=== PATIENT | male | born 1975 | race Hispanic/Latino ===

== ENCOUNTER 2020-02-26 21:40 | Inpatient (IN) | payer OTHER ==
[~2020-02-26] VITALS: Ht 162.6 cm; Wt 82.2 kg
[2020-02-26] MEDS ORDERED: LIDOCAINE HCL 2% VISCOUS 15 ML UDCUP ONE (23:51)
[2020-02-26] MEDS ORDERED: MAG HYDROX/AL HYDROX/SIMETH ES 30 ML SUSP UDCUP ONE (23:52)
[2020-02-26] MEDS ORDERED: ONDANSETRON HCL 4 MG/2 ML VIAL ONE (23:52)
[2020-02-26] MEDS ORDERED: ACETAMINOPHEN EXTRA STRENGTH 500 MG TABLET ONE (23:52)
[2020-02-27 00:10] LABS: BASOPHILS % (AUTO) 0.2 % (0.0-5.0); HEMATOCRIT 44.3 % (42-54); LYMPHOCYTES % (AUTO) 13.9 % (21.0-51.0); MEAN CORPUSCULAR HEMOGLOBIN 29.7 pg (27.0-33.0); MEAN CORPUSCULAR HGB CONC 34.3 g/dL (32.0-36.0); MEAN CORPUSCULAR VOLUME 86.7 fL (79-99); MONOCYTES % (AUTO) 9.9 % (3.0-13.0); NEUTROPHILS % (AUTO) 75.8 % (40.0-77.0); PLATELET COUNT (AUTO) 161 K/uL (130-400); RED BLOOD CELL COUNT(AUTO) 5.11 MIL/uL (4.50-6.20); RED CELL DISTRIBUTION WIDTH 12.4 % (11.0-15.5)
[2020-02-27 00:21] LABS: CREATININE 1.1 mg/dL (0.5-1.5); POTASSIUM 3.6 mmol/L (3.5-5.1)
[2020-02-27 00:25] LABS: INR 0.94 (0.85-1.15); PARTIAL THROMBOPLASTIN TIME 32.4 SEC (26.3-35.5); PROTHROMBIN TIME 10.2 SEC (9.6-11.6)
[2020-02-27 00:28] LABS: RAPID GROUP A STREP NEGATIVE (NEGATIVE)
[2020-02-27 00:29] LABS: BILIRUBIN,TOTAL 0.4 mg/dL (0.2-1.0); TOTAL PROTEIN, SERUM 6.9 g/dL (6.0-8.3)
[2020-02-27 00:30] LABS: CREATINE KINASE, TOTAL 83 U/L (21-232); MYOGLOBIN 35 ng/mL (10-92); TROPONIN I < 0.04 ng/mL (0.00-0.06)
[2020-02-27] MEDS ORDERED: IOHEXOL 350 MG/ML 100ML INFUS..BTL IV ONE (01:11)
[2020-02-27] MEDS ORDERED: IOHEXOL-350 50ML VIAL IV ONE (01:11)
[2020-02-27 01:35] LABS: APPEARANCE,URINE Clear (CLEAR); BILIRUBIN,URINE Small (NEGATIVE); COLOR,URINE Dark Yellow (YELLOW); GLUCOSE, URINE (UA) Negative (NEGATIVE); KETONES,URINE >=160 mg/dL (NEGATIVE); LEUKOCYTE ESTERASE ,URINE Negative (NEGATIVE); NITRATE,URINE Negative (NEGATIVE); OCCULT BLOOD,URINE Negative (NEGATIVE); PROTEIN,URINE POS 1+ mg/dL (NEGATIVE)
[2020-02-27 01:53] LABS: BACTERIA,URINE Few /HPF (None Seen); MUCUS,URINE Few LPF (None Seen); SQUAMOUS EPITHELIAL CELL,UR 0-2 /HPF (0-2)
[2020-02-27 02:27] LABS: ABG BASE EXCESS -2.4 mmol/L (-2.0-3.0); ABG HCO3 21.3 mmol/L (21.0-28.0); ABG OXYGEN SATURATION 91.7 % (95.0-99.0); ABG PCO2 34 mmHg (35-48)
[2020-02-27] MEDS: SODIUM CHLORIDE 0.9% 1000ML 1,000 ML IV SCH ×2 (03:04→13:04)
[2020-02-27] MEDS: AZITHROMYCIN 500MG+NS 250ML 250 ML IV SCH (03:15)
[2020-02-27] MEDS ORDERED: SODIUM CHLORIDE 0.9% 1000ML 1,000 ML IV SCH (03:15)
[2020-02-27] MEDS ORDERED: DIPHENHYDRAMINE HCL 25 MG CAPSULE PO PRN (03:15)
[2020-02-27] MEDS ORDERED: NITROGLYCERIN 0.4 MG SL TAB SL PRN (03:15)
[2020-02-27] MEDS: CEFTRIAXONE SODIUM 1 GM IVP SCH (03:15)
[2020-02-27] MEDS ORDERED: ACETAMINOPHEN 325 MG TAB PO PRN (03:15)
[2020-02-27] MEDS ORDERED: ONDANSETRON HCL 4 MG/2 ML VIAL IV PRN (03:15)
[2020-02-27] MEDS ORDERED: CEFTRIAXONE SODIUM 1 GM ONE (03:28)
[2020-02-27] MEDS ORDERED: METHYLPREDNISOLONE SOD SUCC 125MG/2ML VIAL ONE (03:28)
[2020-02-27] MEDS: METHYLPREDNISOLONE SOD SUCC 40MG/ML 1ML IVP SCH ×2 (04:00→12:00)
[2020-02-27] MEDS ORDERED: ALBUTEROL INHALER 90MCG/INH IH PRN (04:30)
[2020-02-27 07:15] LABS: HEMATOCRIT 40.7 % (42-54); MEAN CORPUSCULAR HGB CONC 34.4 g/dL (32.0-36.0); MEAN CORPUSCULAR VOLUME 87.2 fL (79-99); PLATELET COUNT (AUTO) 161 K/uL (130-400); RED BLOOD CELL COUNT(AUTO) 4.67 MIL/uL (4.50-6.20); RED CELL DISTRIBUTION WIDTH 12.7 % (11.0-15.5); WHITE BLOOD COUNT (AUTO) 4.1 K/uL (4.8-10.8)
[2020-02-27 07:50] LABS: ALANINE AMINOTRANSFERASE 61 U/L (12-78); ALBUMIN 2.5 g/dL (3.5-5.0); ASPARTATE AMINOTRANSFERASE 53 U/L (10-37); BILIRUBIN,TOTAL 0.3 mg/dL (0.2-1.0); CARBON DIOXIDE 24 mmol/L (21-32); CHLORIDE 109 mmol/L (101-111); CREATINE KINASE, TOTAL 88 U/L (21-232); CREATININE 0.8 mg/dL (0.5-1.5); GLOMERULAR FILTR. RATE CALC 111 mL/min (>60); GLUCOSE,RANDOM 122 mg/dL (70-105); LACTATE DEHYDROGENASE 393 U/L (81-234); MYOGLOBIN 34 ng/mL (10-92); POTASSIUM 4.1 mmol/L (3.5-5.1); SODIUM SERUM 139 mmol/L (136-145); TOTAL PROTEIN, SERUM 5.8 g/dL (6.0-8.3); TRIGLYCERIDES 60 mg/dL (30-200); TROPONIN I < 0.04 ng/mL (0.00-0.06); UREA NITROGEN, BLOOD 9 mg/dL (7-18)
[2020-02-27 08:23] LABS: BAND NEUTROPHILS % (MANUAL) 3 % (0-2); LYMPHOCYTES % (MANUAL) 8 % (22-44); MONOCYTES % (MANUAL) 7 % (2-9); PLATELET MORPHOLOGY COMMENT ADEQUATE; REACTIVE LYMPHOCYTES 4 % (0-0); SEGMENTED NEUTROPHILS % 78 % (40-70)
[2020-02-27] MEDS ORDERED: ENOXAPARIN SODIUM 30 MG/0.3 ML SQ SCH (09:00)
[2020-02-27] MEDS: FAMOTIDINE 20MG TAB 20 MG TAB PO SCH (09:00)
[2020-02-27] MEDS ORDERED: METHYLPREDNISOLONE SOD SUCC 40MG/ML 1ML ONE ×2 (09:24→18:00)
[2020-02-27] MEDS ORDERED: ENOXAPARIN SODIUM 30 MG/0.3 ML SQ ONE (10:39)
[2020-02-27] MEDS ORDERED: FAMOTIDINE/PF 20 MG/2 ML VIAL IV ONE ×2 (11:23→22:19)
--- NOTE | 2020-02-27 14:29 | NUR ---
INITIAL SW spoke with patient's spouse, Essence Rowland, [phone]. No home services or DME. Patient is independent and arabella. He has no PCP as per . Pharmacy is [facility] located on [address] [facility] in [place]. DCP is home. Patient has no insurance or benefits. He is not a [place] citizen or legal resident as per . Patient's spouse educated on [facility] $4 medication program and [facility] $5 medication program. Patient is being assisted by [employer] for financial matters. Addendum: 02/27/20 at 1436 by JEVON MAHARAJ Amended: Links added.
[2020-02-27] MEDS ORDERED: BENZONATATE 100 MG CAPSULE PO ONE (20:52)
[2020-02-27] MEDS ORDERED: SODIUM CHLORIDE 0.9% 1000ML 1,000 ML IV ONE (22:22)
[2020-02-27] MEDS ORDERED: BENZONATATE 100 MG CAPSULE PO PRN (23:15)
[2020-02-28] MEDS ORDERED: DiphenhydrAMINE HCL 25 MG/10 ML ELIXIR UDCUP ONE (02:01)
[2020-02-28] MEDS ORDERED: ACETAMINOPHEN ELIXIR 650 MG/20.3 ML UDCUP ONE (02:01)
[2020-02-28] MEDS ORDERED: METHYLPREDNISOLONE SOD SUCC 40MG/ML 1ML ONE ×3 (02:10→17:04)
[2020-02-28] MEDS: CEFTRIAXONE SODIUM 1 GM IVP SCH (03:15)
[2020-02-28] MEDS: AZITHROMYCIN 500MG+NS 250ML 250 ML IV SCH (03:15)
[2020-02-28] MEDS ORDERED: AZITHROMYCIN 500MG+NS 250ML 250 ML IV ONE (05:02)
[2020-02-28] MEDS ORDERED: CEFTRIAXONE SODIUM 1 GM ONE (05:03)
[2020-02-28 05:41] LABS: MEAN CORPUSCULAR HEMOGLOBIN 29.9 pg (27.0-33.0); MEAN CORPUSCULAR HGB CONC 34.3 g/dL (32.0-36.0); PLATELET COUNT (AUTO) 210 K/uL (130-400); RED BLOOD CELL COUNT(AUTO) 5.29 MIL/uL (4.50-6.20); RED CELL DISTRIBUTION WIDTH 12.8 % (11.0-15.5); WHITE BLOOD COUNT (AUTO) 13.9 K/uL (4.8-10.8)
[2020-02-28 06:00] LABS: ABG BASE EXCESS -3.6 mmol/L (-2.0-3.0); ABG HCO3 20.4 mmol/L (21.0-28.0); ABG OXYGEN SATURATION 91.1 % (95.0-99.0); ABG PCO2 34 mmHg (35-48)
[2020-02-28 06:02] LABS: ALBUMIN 2.8 g/dL (3.5-5.0); BILIRUBIN,TOTAL 0.3 mg/dL (0.2-1.0); POTASSIUM 3.6 mmol/L (3.5-5.1); TOTAL PROTEIN, SERUM 6.6 g/dL (6.0-8.3)
[2020-02-28 06:34] LABS: BAND NEUTROPHILS % (MANUAL) 19 % (0-2); LYMPHOCYTES % (MANUAL) 10 % (22-44); MAN.DIFF COMMENT-IMPRESSION MANUAL DIFFERENTIAL; MONOCYTES % (MANUAL) 7 % (2-9); PLATELET MORPHOLOGY COMMENT ADEQUATE; SEGMENTED NEUTROPHILS % 64 % (40-70)
[2020-02-28] MEDS ORDERED: ENOXAPARIN SODIUM 30 MG/0.3 ML SQ ONE (09:23)
[2020-02-28] MEDS ORDERED: FAMOTIDINE/PF 20 MG/2 ML VIAL IV ONE ×2 (09:26→21:26)
[2020-02-28] MEDS ORDERED: ACETAMINOPHEN 325 MG TAB ONE (18:24)
[2020-02-28] MEDS ORDERED: ENOXAPARIN SODIUM 40 MG/0.4 ML SYRINGE SQ ONE (21:25)
[2020-02-29] MEDS ORDERED: METHYLPREDNISOLONE SOD SUCC 40MG/ML 1ML ONE ×5 (01:05→21:07)
[2020-02-29] MEDS: CEFTRIAXONE SODIUM 1 GM IVP SCH (03:15)
[2020-02-29] MEDS: AZITHROMYCIN 500MG+NS 250ML 250 ML IV SCH (03:15)
[2020-02-29] MEDS ORDERED: CEFTRIAXONE SODIUM 1 GM ONE (04:08)
[2020-02-29 05:22] LABS: BASOPHILS % (AUTO) 0.1 % (0.0-5.0); HEMATOCRIT 42.2 % (42-54); LYMPHOCYTES % (AUTO) 5.1 % (21.0-51.0); MEAN CORPUSCULAR HEMOGLOBIN 28.8 pg (27.0-33.0); MEAN CORPUSCULAR HGB CONC 33.4 g/dL (32.0-36.0); MEAN CORPUSCULAR VOLUME 86.3 fL (79-99); MONOCYTES % (AUTO) 3.3 % (3.0-13.0); NEUTROPHILS % (AUTO) 90.8 % (40.0-77.0); PLATELET COUNT (AUTO) 243 K/uL (130-400); RED BLOOD CELL COUNT(AUTO) 4.89 MIL/uL (4.50-6.20); RED CELL DISTRIBUTION WIDTH 12.9 % (11.0-15.5); WHITE BLOOD COUNT (AUTO) 17.5 K/uL (4.8-10.8)
[2020-02-29 05:49] LABS: ALBUMIN 2.5 g/dL (3.5-5.0); BILIRUBIN,TOTAL 0.2 mg/dL (0.2-1.0); CREATININE 0.9 mg/dL (0.5-1.5); CRP QUANTITATIVE 29.2 mg/L (0.00-9.0); POTASSIUM 3.4 mmol/L (3.5-5.1); TOTAL PROTEIN, SERUM 6.1 g/dL (6.0-8.3)
[2020-02-29] MEDS: METHYLPREDNISOLONE SOD SUCC 40MG/ML 1ML IVP SCH ×3 (09:00→21:09)
[2020-02-29] MEDS: ENOXAPARIN SODIUM 40 MG/0.4 ML SYRINGE SQ SCH ×2 (09:00→21:12)
[2020-02-29] MEDS: FAMOTIDINE 20MG TAB 20 MG TAB PO SCH ×2 (09:00→20:57)
[2020-02-29] MEDS ORDERED: ENOXAPARIN SODIUM 40 MG/0.4 ML SYRINGE SQ ONE ×3 (10:03→21:07)
[2020-02-29] MEDS ORDERED: POTASSIUM CHLORIDE 20MEQ/100ML 100 ML IV PRN (11:00)
[2020-02-29] MEDS ORDERED: LIDOCAINE HCL-MPF 1% 2ML VIAL IV PRN (11:00)
[2020-02-29] MEDS ORDERED: POTASSIUM CHLORIDE 10% ELIXIR 20 MEQ/15 ML UDCUP PO PRN (11:00)
--- NOTE | 2020-02-29 18:15 | NUR ---
already positive in er ..md aware Addendum: 02/29/20 at 1819 by SHERYL MARSHALL RN RN Amended: Links added.
[2020-02-29 20:00] VITALS: BP 131/77
[2020-02-29] MEDS ORDERED: FAMOTIDINE/PF 20 MG/2 ML VIAL IV ONE (21:01)
[2020-02-29] MEDS: ACETAMINOPHEN 325 MG TAB PO PRN (23:39)
[2020-03-01] VITALS: BP 99/62
[2020-03-01 04:00] VITALS: BP 121/66
[2020-03-01] MEDS ORDERED: METHYLPREDNISOLONE SOD SUCC 40MG/ML 1ML ONE ×2 (04:24→20:51)
[2020-03-01] MEDS ORDERED: CEFTRIAXONE SODIUM 1 GM ONE (04:25)
[2020-03-01] MEDS ORDERED: AZITHROMYCIN 500MG+NS 250ML 250 ML IV ONE (04:25)
[2020-03-01] MEDS: AZITHROMYCIN 500MG+NS 250ML 250 ML IV SCH (04:34)
[2020-03-01] MEDS: METHYLPREDNISOLONE SOD SUCC 40MG/ML 1ML IVP SCH ×3 (04:34→20:00)
[2020-03-01] MEDS: CEFTRIAXONE SODIUM 1 GM IVP SCH (04:34)
[2020-03-01 06:04] LABS: HEMATOCRIT 41.5 % (42-54); MEAN CORPUSCULAR HEMOGLOBIN 29.8 pg (27.0-33.0); MEAN CORPUSCULAR HGB CONC 34.2 g/dL (32.0-36.0); MEAN CORPUSCULAR VOLUME 87.2 fL (79-99); PLATELET COUNT (AUTO) 267 K/uL (130-400); RED BLOOD CELL COUNT(AUTO) 4.76 MIL/uL (4.50-6.20); RED CELL DISTRIBUTION WIDTH 12.8 % (11.0-15.5); WHITE BLOOD COUNT (AUTO) 12.8 K/uL (4.8-10.8)
[2020-03-01 06:30] LABS: ALBUMIN 2.4 g/dL (3.5-5.0); BILIRUBIN,TOTAL 0.3 mg/dL (0.2-1.0); CREATININE 0.9 mg/dL (0.5-1.5); CRP QUANTITATIVE 18.3 mg/L (0.00-9.0); POTASSIUM 3.2 mmol/L (3.5-5.1); TOTAL PROTEIN, SERUM 5.7 g/dL (6.0-8.3)
[2020-03-01 06:57] LABS: LYMPHOCYTES % (MANUAL) 4 % (22-44); MAN.DIFF COMMENT-IMPRESSION MANUAL DIFFERENTIAL; MONOCYTES % (MANUAL) 2 % (2-9); PLATELET MORPHOLOGY COMMENT ADEQUATE; SEGMENTED NEUTROPHILS % 94 % (40-70)
[2020-03-01 08:00] VITALS: BP 118/69
[2020-03-01] MEDS: ENOXAPARIN SODIUM 40 MG/0.4 ML SYRINGE SQ SCH ×2 (09:00→21:00)
[2020-03-01] MEDS: FAMOTIDINE 20MG TAB 20 MG TAB PO SCH ×2 (09:00→21:00)
[2020-03-01 12:00] VITALS: BP 126/67
[2020-03-01] MEDS: POTASSIUM CHLORIDE 20 MEQ ERTAB PO PRN ×2 (14:38→16:01)
[2020-03-01] MEDS ORDERED: POTASSIUM CHLORIDE 20 MEQ ERTAB PO ONE ×2 (14:40→14:48)
[2020-03-01 16:00] VITALS: BP 129/80
[2020-03-01] MEDS: ACETAMINOPHEN 325 MG TAB PO PRN (16:01)
[2020-03-02] MEDS ORDERED: ENOXAPARIN SODIUM 40 MG/0.4 ML SYRINGE SQ ONE (02:25)
[2020-03-02] MEDS: AZITHROMYCIN 500MG+NS 250ML 250 ML IV SCH (03:15)
[2020-03-02] MEDS: CEFTRIAXONE SODIUM 1 GM IVP SCH (03:15)
[2020-03-02] MEDS: METHYLPREDNISOLONE SOD SUCC 40MG/ML 1ML IVP SCH ×3 (04:00→21:12)
[2020-03-02] MEDS ORDERED: CEFTRIAXONE SODIUM 1 GM ONE (05:39)
[2020-03-02 06:31] LABS: HEMATOCRIT 41.8 % (42-54); MEAN CORPUSCULAR VOLUME 85.3 fL (79-99); PLATELET COUNT (AUTO) 287 K/uL (130-400); RED CELL DISTRIBUTION WIDTH 12.8 % (11.0-15.5); WHITE BLOOD COUNT (AUTO) 12.3 K/uL (4.8-10.8)
[2020-03-02] MEDS ORDERED: MAG HYDROX/AL HYDROX/SIMETH ES 30 ML SUSP UDCUP ONE (06:31)
[2020-03-02 07:27] LABS: ALBUMIN 2.5 g/dL (3.5-5.0); BILIRUBIN,TOTAL 0.4 mg/dL (0.2-1.0); CREATININE 0.7 mg/dL (0.5-1.5); CRP QUANTITATIVE 7.1 mg/L (0.00-9.0); POTASSIUM 3.7 mmol/L (3.5-5.1); TOTAL PROTEIN, SERUM 5.9 g/dL (6.0-8.3)
[2020-03-02 07:29] LABS: LYMPHOCYTES % (MANUAL) 1 % (22-44); MONOCYTES % (MANUAL) 13 % (2-9); REACTIVE LYMPHOCYTES 2 % (0-0); SEGMENTED NEUTROPHILS % 84 % (40-70)
[2020-03-02 07:30] LABS: PLATELET MORPHOLOGY COMMENT ADEQUATE
[2020-03-02] MEDS: FAMOTIDINE 20MG TAB 20 MG TAB PO SCH ×2 (09:00→21:13)
[2020-03-02] MEDS: ENOXAPARIN SODIUM 40 MG/0.4 ML SYRINGE SQ SCH ×2 (12:17→21:12)
[2020-03-02 12:33] VITALS: BP 124/62
[2020-03-02 16:00] VITALS: BP 112/65
[2020-03-02 19:30] VITALS: BP 120/76
[2020-03-02] MEDS: ACETAMINOPHEN 325 MG TAB PO PRN (21:57)
[2020-03-03] VITALS (7 sets, daily range): BP systolic 108–139; BP diastolic 53–85
[2020-03-03] MEDS: CEFTRIAXONE SODIUM 1 GM IVP SCH (03:24)
[2020-03-03] MEDS: METHYLPREDNISOLONE SOD SUCC 40MG/ML 1ML IVP SCH ×3 (03:24→20:29)
[2020-03-03] MEDS: AZITHROMYCIN 500MG+NS 250ML 250 ML IV SCH (03:24)
[2020-03-03 04:35] LABS: HEMATOCRIT 41.9 % (42-54); MEAN CORPUSCULAR HEMOGLOBIN 29.2 pg (27.0-33.0); MEAN CORPUSCULAR HGB CONC 34.1 g/dL (32.0-36.0); MEAN CORPUSCULAR VOLUME 85.7 fL (79-99); PLATELET COUNT (AUTO) 313 K/uL (130-400); RED BLOOD CELL COUNT(AUTO) 4.89 MIL/uL (4.50-6.20); RED CELL DISTRIBUTION WIDTH 12.5 % (11.0-15.5); WHITE BLOOD COUNT (AUTO) 9.2 K/uL (4.8-10.8)
[2020-03-03 05:08] LABS: ALBUMIN 2.5 g/dL (3.5-5.0); BILIRUBIN,TOTAL 0.4 mg/dL (0.2-1.0); CREATININE 1.1 mg/dL (0.5-1.5); CRP QUANTITATIVE 8.1 mg/L (0.00-9.0); POTASSIUM 3.9 mmol/L (3.5-5.1); TOTAL PROTEIN, SERUM 5.9 g/dL (6.0-8.3)
[2020-03-03 05:45] LABS: BAND NEUTROPHILS % (MANUAL) 1 % (0-2); LYMPHOCYTES % (MANUAL) 5 % (22-44); MAN.DIFF COMMENT-IMPRESSION MANUAL DIFFERENTIAL; MONOCYTES % (MANUAL) 3 % (2-9); PLATELET MORPHOLOGY COMMENT ADEQUATE; REACTIVE LYMPHOCYTES 2 % (0-0); SEGMENTED NEUTROPHILS % 89 % (40-70)
[2020-03-03] MEDS: FAMOTIDINE 20MG TAB 20 MG TAB PO SCH ×2 (08:10→20:29)
[2020-03-03] MEDS: ENOXAPARIN SODIUM 40 MG/0.4 ML SYRINGE SQ SCH (08:10)
--- NOTE | 2020-03-03 12:00 | NUR ---
PT HAS STARTED TO BE WEANED OFF THE O2. AT 0900 PT PLACED ON 2L NC O2 SATS 96%. AT 1100 PT PLACED ON 1L NC O2 SATS 925. MADE AWARE STATED PT CAN GO HOME TOMORROW 03/04 IF O2 SATS ARE ABOVE 94% ON ROOM AIR.
[2020-03-04 03:04] VITALS: BP 101/61
[2020-03-04] MEDS: AZITHROMYCIN 500MG+NS 250ML 250 ML IV SCH (03:12)
[2020-03-04] MEDS: CEFTRIAXONE SODIUM 1 GM IVP SCH (03:12)
[2020-03-04] MEDS: METHYLPREDNISOLONE SOD SUCC 40MG/ML 1ML IVP SCH (03:12)
[2020-03-04 08:00] VITALS: BP 109/53
--- NOTE | 2020-03-04 08:00 | NUR ---
AM ASSESSMENT PATIENT AWAKE, ALERT, AND ORIENTED. DENIES SOB OR LABORED RESPIRATIONS, UP AD STEPHANIE, GAIT STEADY. DENIES PAIN OR DISCOMFORT, PT ON ROOM AIR.
[2020-03-04] MEDS ORDERED: AZIT500T4 PO (08:16)
[2020-03-04] MEDS ORDERED: DEXA6TAB PO (08:16)
[2020-03-04] MEDS: FAMOTIDINE 20MG TAB 20 MG TAB PO SCH (08:43)
[2020-03-04] MEDS ORDERED: ENOXAPARIN SODIUM 40 MG/0.4 ML SYRINGE SQ SCH (09:00)
--- NOTE | 2020-03-04 11:25 | NUR ---
DC INSTRUCTIONS PATIENT AWAKE, ALERT, AND ORIENTED. DC HOME INSTRUCTIONS GIVEN TO PT, ACKNOWLEDGED ALL INFORMATION, ALL QUESTIONS AND CONCERNS ANSWERED. PT MADE AWARE HE HAS TO SELF ISOLATE FOR 10 DAYS INSTRUCTED PER MD, MADE AWARE NOT TO GO TO PUBLIC PLACES UNLESS FOR MEDICAL CARE AND MASK HAS TO BE USED. PATIENT MADE AWARE TO CALL 911 OR RETURN TO ER IF SHORT OF BREATH OR HAVING OTHER PROBLEMS. COVID DC INSTRUCTIONS GIVEN AND RX GIVEN TO PT. ACKNOWLEDGED ALL INFORMATION. PATIENT ON ROOM AIR, NO DISTRESS, O2 SAT 96%.
[2020-03-04 12:00] VITALS: BP 104/55
== END 2020-03-04 13:00 | disposition home or self-care (01) | DRG 177 ==
LOC: EDH 21:40 → DAHIP 21:41 → EDHIP 21:42 → 2DH 03-01 14:53 → EDHIP 03-01 15:11 → 4AH 03-02 09:47
PROVIDERS: ADMIT Internal Medicine; ATTEND Internal Medicine
DX: U07.1 COVID-19 (principal); A41.89 Other specified sepsis; J12.89 Other viral pneumonia; J96.01 Acute respiratory failure with hypoxia; R65.20 Severe sepsis without septic shock; Z68.31 Body mass index [BMI] 31.0-31.9, adult; E66.01 Morbid (severe) obesity due to excess calories; E87.6 Hypokalemia; K76.89 Other specified diseases of liver
CPT/HCPCS: 36415; 36600; 71045; 71275; 74177; 80053; 81001; 82330; 82550; 82728; 82803; 82948; 83605; 83615; 83735; 83874; 84145; 84478; 84484; 85025; 85378; 85384; 85610; 85730; 86140; 86850; 86900; 86901; 87040; 87088; 87633; 87804; 87880; 93005; G0378; J0456; J0696; J1650; J2405; J2920; J2930; J3490; J7030; Q9967; U0003